=== PATIENT | male | born 1960 | race Caucasian/White ===

== ENCOUNTER 2017-11-18 13:24 | Emergency (ER) | payer SELFPAY ==
[2017-11-18 15:21] LABS: Absolute Lymphocytes (CBC) 2.4 K/uL (0.7-4.9); Absolute Monocytes 0.7 K/uL (0.1-1.3); Absolute Neutrophil 6.1 K/uL (1.8-8.0); Basophils % 0.7 % (0-1.3); Eosinophils % 1.5 % (0-4.4); Hematocrit 48.7 % (39.6-49.0); Lymphocytes % 25.1 % (15.3-44.8); MCH 36.6 pg (27.0-35.0); MCV 106.9 fL (80-100); Monocytes % 7.7 % (3.3-12.3); RBC Red Blood Cell Count 4.56 M/uL (4.33-5.43)
[2017-11-18 16:27] LABS: ALT/SGPT 24 U/L (12-78); AST/SGOT 35 U/L (15-37); Alkaline Phosphatase 105 U/L (45-117); Amylase Level 45 U/L (25-115); BUN Blood Urea Nitrogen 4 mg/dL (7-18); Bicarbonate 32 mmol/L (21-32); Bilirubin Direct 0.5 mg/dL (0-0.2); Bilirubin Total 1.6 mg/dL (0.2-1.0); Glucose Level 97 mg/dL (74-106); Lipase 53 U/L (73-393); Potassium 3.1 mmol/L (3.5-5.1); Protein, Total 7.6 g/dL (6.4-8.2); Sodium Level 134 mmol/L (136-145)
[2017-11-18 16:36] LABS: Blood Morphology Comment NOTED (NOT SEEN); MPV 9.5 fL (7.6-11.3); Macrocytosis 1+; Platelet Estimate ADEQ
[2017-11-18 16:37] LABS: Urine White Blood Cell Casts OK
--- NOTE | 2017-11-18 17:02 | RAD REPORT ---
EXAM DESCRIPTION: CTAbdomen Pelvis W Contrast - 11/18/2017 4:47 pm CLINICAL HISTORY: Abdominal pain. Flank Pain, IV ONLY COMPARISON: No comparisons TECHNIQUE: Biphasic CT imaging of the abdomen and pelvis was performed with 100 ml non-ionic IV cont rast. All CT scans are performed using dose optimization technique as appropriate and may include automated exposure control or mA/KV adjustment according to patient size. FINDINGS: High density material in the left base anteriorly likely related to previous episodes of a spiration. Trace bilateral pleural fluid. Diffuse fatty liver is present with a nodular contour most compatible with underlying cirrhosis. Mild splenomegaly is also seen. The adrenal glands and pancreas have a normal appearance. The gallbladder is slightly distended. Both kidneys are normal in size without hydronephrosis. No bowel obstruction, free air, free fluid or abscess. The appendix is normal. No evidence of signi ficant lymphadenopathy. No acute fracture seen. Evidence of old left lumbar transverse process fractures. IMPRESSION: No acute intra-abdominal or pelvic finding. Fatty liver, mild cirrhosis, splenomegaly noted.
[2017-11-18 17:16] LABS: Urine Bacteria <20 /HPF (NONE SEEN); Urine Culture Reflex Order REFLEXED; Urine RBC <5 /HPF (NONE SEEN)
[2017-11-18 18:06] LABS: Urine Blood NEGATIVE (NEG); Urine Glucose NEGATIVE (NEG); Urine Protein 1+ (NEG); Urine Specific Gravity 1.015 (1.005-1.030); Urine pH 7.5 (5.0-7.0)
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
--- NOTE | 2017-11-18 18:15 | ER ---
Nurse's Notes [facility] Name: Darius Venegas IV Age: 57 yrs Sex: Male : 1960 Arrival Date: 11/18/2017 Time: 13:27 Bed 25 Private MD: Keshawn Guillen H Diagnosis: Other abdominal pain;Sprain of ligaments of lumbar spine Presentation: 11/18 13:34 Presenting complaint: Patient states: slipped and fell 2 days ago and landed on sv buttocks. c/o back pain. Denies numbness. Transition of care: patient was not received from another setting of care. Onset of symptoms was November 16, 2017. Risk Assessment: Do you want to hurt yourself or someone else? Patient reports no desire to harm self or others. Care prior to arrival: None. 13:34 Method Of Arrival: Ambulatory sv 13:34 Acuity: SONNY 4 sv 18:31 Initial Sepsis Screen: Does the patient meet any 2 criteria? No. Patient's initial tl3 sepsis screen is negative. Does the patient have a suspected source of infection? No. Patient's initial sepsis screen is negative. Historical: - Allergies: 13:37 Sulfa (Sulfonamide Antibiotics); sv - Home Meds: 13:37 Alprazolam Oral [Active]; zaleplon oral oral [Active]; risperidone oral oral [Active]; sv amlodipine oral [Active]; Furosemide Oral [Active]; Mirtazapine Oral [Active]; - PMHx: 13:37 Hypertension; sv - PSHx: 13:37 None; sv - Immunization history:: Adult Immunizations up to date. - Social history:: Smoking status: Patient uses tobacco products, smokes one-half pack cigarettes per day. - Ebola Screening: : No symptoms or risks identified at this time. Screenin:29 Abuse screen: Denies threats or abuse. Nutritional screening: No deficits noted. tl3 Tuberculosis screening: No symptoms or risk factors identified. Fall Risk None identified. Assessment: 13:48 General: Appears uncomfortable, obese, well groomed, well developed, well nourished, tl3 Behavior is calm, cooperative, appropriate for age. Pain: Complains of pain in bilateral flank pain. Neuro: Level of Consciousness is awake, alert, obeys commands, Oriented to person, place, time, situation, Appropriate for age. Cardiovascular: Heart tones S1 S2 present Patient's skin is warm and dry. Respiratory: Airway is patent Respiratory effort is even, unlabored, Respiratory pattern is regular, symmetrical. GI: No signs and/or symptoms were reported involving the gastrointestinal system. : Reports discharge, bloody, am. EENT: No signs and/or symptoms were reported regarding the EENT system. Derm: No signs and/or symptoms reported regarding the dermatologic system. Musculoskeletal: No signs and/or symptoms reported regarding the musculoskeletal system. Injury Description: pt slipped and fell on a rug Tuesday night, felt pain in bilateral flank area, am urine was bloody, today it is dark, pain is 9/10 with positional changes. 14:30 Reassessment: No changes from previously documented assessment. Patient and/or family tl3 updated on plan of care and expected duration. Pain level reassessed. Patient is alert, oriented x 3, equal unlabored respirations, skin warm/dry/pink. awaiting CT. 15:40 Reassessment: No changes from previously documented assessment. Patient and/or family tl3 updated on plan of care and expected duration. Pain level reassessed. Patient is alert, oriented x 3, equal unlabored respirations, skin warm/dry/pink. 17:00 Reassessment: No changes from previously documented assessment. Patient and/or family tl3 updated on plan of care and expected duration. Pain level reassessed. Patient is alert, oriented x 3, equal unlabored respirations, skin warm/dry/pink. pt returned from CT. 18:29 Reassessment: Patient appears in no apparent distress at this time. No changes from tl3 previously documented assessment. Patient and/or family updated on plan of care and expected duration. Pain level reassessed. Patient is alert, oriented x 3, equal unlabored respirations, skin warm/dry/pink. Vital Signs: 13:37 BP 140 / 77; Pulse 100; Resp 20; Temp 98.6; Pulse Ox 100% ; Weight 85.28 kg; Height 5 sv ft. 8 in. (172.72 cm); Pain 5/10; 13:51 BP 138 / 100; Pulse 100; Resp 18; Pulse Ox 96% ; tl3 14:50 BP 142 / 94; Pulse 96; Resp 18; Pulse Ox 98% on R/A; dh3 15:45 BP 148 / 80; Pulse 91; Resp 17; Pulse Ox 100% on R/A; dh3 16:45 BP 142 / 88; Pulse 92; Resp 17; Pulse Ox 100% on R/A; dh3 18:29 BP 142 / 88; Pulse 30; Resp 18; Pulse Ox 97% ; tl3 13:37 Body Mass Index 28.59 (85.28 kg, 172.72 cm) sv ED Course: 13:27 Patient arrived in ED. mr 13:28 Keshawn Guillen DO is Private Physician. mr 13:35 Triage completed. sv 13:37 Arm band placed on left wrist. sv 13:41 Alexandra Pimentel, RN is Primary Nurse. tl3 13:52 Travis Garcia PA is PHCP. jmm 13:52 Scotty Doran MD is Attending Physician. jmm 14:55 Radiology exam delayed due to lab results not completed at this time. (BUN/Creatinine). vr 15:00 Missed attempt(s): 20 gauge in right forearm. Bleeding controlled, band aid applied, dh3 catheter tip intact. 15:16 Initial lab(s) drawn, by me, sent to lab. Inserted saline lock: 20 gauge in left dh3 antecubital area, using aseptic technique. Blood collected. 15:38 Lab(s) recollected, by me, sent to lab. 3 16:12 Radiology exam delayed due to lab results not completed at this time. (BUN/Creatinine). nj 16:[address] via stretcher. nj 16:46 CT completed. Patient tolerated procedure well. Patient moved back from CT. nj 16:47 CT Abd/Pelvis - W/Contrast In Process Unspecified. EDMS 17:42 Diet: Patient given snack. Patient given ice chips. tl3 18:13 Keshawn Guillen DO is Referral Physician. jmm 18:29 Patient has correct armband on for positive identification. Bed in low position. Call tl3 light in reach. Side rails up X 1. Pulse ox on. NIBP on. 18:29 No provider procedures requiring assistance completed. IV discontinued, intact, tl3 bleeding controlled, No redness/swelling at site. Pressure dressing applied. Administered Medications: No medications were administered Outcome: 18:15 Discharge ordered by MD. roberts 18:29 Discharged to home ambulatory. tl3 18:29 Condition: stable 18:29 Discharge instructions given to patient, Instructed on discharge instructions, follow up and referral plans. Demonstrated understanding of instructions, follow-up care. 18:32 Patient left the ED. tl3 Signatures: Dispatcher [employer] Thelma Hyman, RN RN Travis Garcia PA PA jmm Rivera, Maria mr Brian, Reagan Saba Deanna [facility] Alexandra Pimentel RN RN tl3
[2017-11-18 19:41] VITALS: TEMP 98.6
[2017-11-18 19:46] VITALS: BP 142/88
[2017-11-18 19:47] VITALS: O2SAT 97
== END 2017-11-18 18:32 | disposition home or self-care (01) ==
LOC: ER 13:24
DX: S33.5XXA Sprain of ligaments of lumbar spine, initial encounter (principal); W19.XXXA Unspecified fall, initial encounter; Y93.9 Activity, unspecified; Y92.9 Unspecified place or not applicable; Z88.2 Allergy status to sulfonamides; I10 Essential (primary) hypertension; F17.210 Nicotine dependence, cigarettes, uncomplicated
CPT/HCPCS: 36415; 74177; 80048; 80076; 81003; 81015; 82150; 82550; 83690; 85025; 87086; 87088; 99284; Q9967

== ENCOUNTER 2019-12-28 11:35 | Day surgery (SDC) | payer OTHER ==
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
[2019-12-26 14:37] LABS: Absolute Lymphocytes (CBC) 3.8 K/uL (0.7-4.9); Basophils % 0.9 % (0-1.3); Hematocrit 48.1 % (39.6-49.0); Lymphocytes % 31.1 % (15.3-44.8); MPV 8.6 fL (7.6-11.3); RBC Red Blood Cell Count 5.24 M/uL (4.33-5.43)
[2019-12-26 14:45] LABS: Potassium 5.1 mmol/L (3.5-5.1)
--- OUTSIDE RECORDS SUMMARY | 2019-12-28 11:44 | XMS REPORT | Continuity of Care Document ---
:1960 Author Organization [facility] t Address [address] [place] [address] Care Team Providers Name Role Phone Omar MORRELL T Attending Clinician Doctor Unassigned, Name Attending Clinician Unavailable Problems Condition Condition Condition Status Onset Resolution Last Treating Co mments Source Name Details Category Date Date Treatment Clinician Date Alcohol-in Alcohol-in Problem Active [facility] duced duced 3-30 Family sleep Sleep 00:00: Practic disorder Disorder 00 e Alcohol-in Alcohol-in Problem Active [facility] duced duced 3-30 Family anxiety Anxiety 00:00: Practic disorder Disorder 00 e Tobacco Tobacco Problem Active [facility] user User 3-30 Family 00:00: Practic 00 e Essential Essential Problem Active Frank bray hypertensi Hypertensi 3-30 Fa silvestre on on 00:00: Practic 00 e 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 Obstructiv 3-30 Fa silvestre e lung e Lung 00:00: Practic disease Disease 00 e Ex-drinker Ex-drinker Problem Active [facility] 3-30 Family 00:00: Practic 00 e Viral Viral Problem Active [facility] hepatitis Hepatitis 2-04 Fami ly C C 00:00: Practic 00 e Alcoholic Alcoholic Problem Active Frank asa cirrhosis Cirrhosis 2-04 Fami ly 00:00: Practic 00 e Allergies, Adverse Reactions, Alerts Allergy Allergy Status Severity Reaction(s) Onset Inactive Treating Comm ents Source Name Type Date Date Clinician SULFA Allergy Active [facility] (SULFONA to Family MIDE substanc Practic ANTIBIOT e e ICS) Social History Smoking Status Start Date Stop Date Source Light Tobacco Smoker [facility] Medications Ordered Filled Start Stop Current Ordering Indication Dosage Frequency Signature Comments Components Source Medication Medication Date Date Medication? Clinician (SIG) Name Name alprazolam alprazolam No 1 TID alprazolam [place] 1 mg tablet 1 mg tablet 1 mg F amily Take 1 Take 1 tablet Practic tablet 3 tablet 3 Take 1 e times a day times a day tablet 3 by oral by oral times a route. route. day by oral route. amlodipine amlodipine No 1 Q1D amlodipine [place] 5 mg tablet 5 mg tablet 5 mg F amily Take 1 Take 1 tablet Practic tablet tablet Take 1 e every day every day tablet by oral by oral every day route. route. by oral route. mirtazapine mirtazapine No 1 Q1D mirtazapin [facility] 15 mg 15 mg e 15 mg Family tablet Take tablet Take tablet Practic 1 tablet 1 tablet Take 1 e every day every day tablet by oral by oral every day route. route. by oral route. propranolol propranolol No 2 TID propranolo [facility] 10 mg 10 mg l 10 mg Family tablet Take tablet Take tablet [facility] 2 tablets 3 2 tablets 3 Take 2 e times a day times a day tablets 3 by oral by oral times a route. route. day by oral route. risperidone risperidone No 2 BID risperidon [place] 0.5 mg 0.5 mg e 0.5 mg Family tablet Take tablet Take tablet [facility] 2 tablets 2 tablets Take 2 e twice a day twice a day tablets by oral by oral twice a route. route. day by oral route. zolpidem 10 zolpidem 10 No 1 Q1D zolpidem [facility] mg tablet mg tablet 10 mg Fami ly Take 1 Take 1 tablet Practic tablet tablet Take 1 e every day every day tablet by oral by oral every day route. route. by oral route. Procedures This patient has no known procedures. Encounters Start End Encounter Admission Attending Care Care Encounter Source Date/Time Date/Time Type Type Clinicians Facility Department ID 2019-08-28 2019-08-28 [facility] [place] - [id number] [facility] 00:00:00 00:00:00 Patricia-Jaseay [facility] candy laboy ICT MANAGERS: Dakota olguin [address] [email or web address] [facility], [address] [address], [place] [address] , Ph. 2019-07-25 2019-07-25 Office Omar [facility] [id number] 13:44:18 14:14:18 Visit Yamilex Heredia [id number] [place] [id number] Beatrice [id number] [address] 2019-07-25 2019-07-25 Orders Doctor JOSE GUADALUPE [id number] 00:00:00 00:00:00 Only Unassigned, CINTHYA [id number] Lasana [facility] [id number] Results This patient has no known results.
[2019-12-28] MEDS ORDERED: propofoL 200 MG/20 ML VIAL IV ONE (12:04)
[2019-12-28] MEDS ORDERED: FENTANYL CITR 100 MCG/2 ML ONE (12:04)
[2019-12-28] MEDS ORDERED: LIDOCAINE 1% MPF 5 ML VIAL ONE (12:04)
[2019-12-28] MEDS ORDERED: ROCURONIUM 50 MG/5 ML VIAL IV ONE (12:04)
[2019-12-28] MEDS ORDERED: MIDAZOLAM HCL 2 MG/2 ML INJ ONE (12:04)
[2019-12-28] MEDS ORDERED: Ringers Lactate 1,000 ML IV ONE (12:06)
[2019-12-28] MEDS ORDERED: CEFAZOLIN/SWI 1gm 1 GM/10 ML SYR ONE (12:07)
[2019-12-28] MEDS ORDERED: BUPIVACAINE 0.5% PF 10 ML VIAL ONE (12:08)
--- NOTE | 2019-12-28 13:31 | P.BOP ---
Preoperative diagnosis: infected backer up subQ masses x 4 Postoperative diagnosis: 1 Excisional biopsy tender R mid back infected subQ mass 3x3cm Primary procedure: 2 Excisional biopsy tender R upper back subQ mass 4x4cm Secondary procedure: 3. Excisional biopsy tender L mid back infected subQ mass 2x2cm Other procedure(s): 4. Excisional biopsy tender L upper back subQ mass 3x3cm Cloth Tearer: Shannon King (Eladio) Estimated blood loss: <20cc Specimen: mass x 4 Findings: as above Anesthesia: General Complications: None Transferred to: Recovery Room Condition: Good
[2019-12-28] MEDS ORDERED: ONDANSETRON 4 MG/2 ML VIAL ONE (13:38)
[2019-12-28] MEDS ORDERED: MORPHINE 4 MG/ML SYR ONE (14:09)
[2019-12-28 14:18] VITALS: TEMP 98
[2019-12-28 14:49] VITALS: BP 135/82; O2SAT 99
--- NOTE | 2019-12-28 22:57 | OP ---
Date of Procedure: 12/28/2019 Surgeon: James Goyal MD Preoperative Diagnosis: Infected back, tender subcutaneous masses x4. Postoperative Diagnosis: Infected back, tender subcutaneous masses x4. Procedures: 1.Excisional biopsy of tender right mid back infected subcutaneous mass, 3 x 3 cm. 2.Excisional biopsy of tender right upper back subcutaneous mass, 4 x 4 cm. 3.Excisional biopsy of tender left mid back infected subcutaneous mass, 2 x 2 cm. 4.Excisional biopsy of tender left upper back subcutaneous mass, 3 x 3 cm. Anesthesia: General plus local. Indications: This is the case of a 59-year-old patient, who comes to us with 4 tender masses; 2 of t hem shows erythematous changes, increasing in size also, and discomfort, although they are tender; 2 of them looks like there are signs of infection. Those 2 are starting to get tender with just mild e rythema. He wants all of them excised. Benefits, alternatives, and risks of excision were fully exp lained, which include, but not limited to infection, bleeding, damage to adjacent structures, anesthe tic complication, nonhealing wound, ID, and even . He also understands this may not relieve his symptoms. He might need more than one surgical intervention. He also understands he may require wo und care in those areas. He signed the consent. Description Of Procedure: The areas of concern were marked by me and the patient in the holding room . The patient was brought to the operating room and placed in supine position. Anesthesia was done without complication. The patient was placed in lateral decubitus position with proper protection. Time-out was called. We proceeded then to prep the back area in usual sterile fashion. We tried to remove the less erythematous masses first and then the other ones second just to diminish the chance of cross contamination. They were excised using the same technique and also closed using same techni que, which consisted of individually incision, was made in a wedge fashion. Incision was carried adam n to subcutaneous tissue, deep in the subcutaneous tissue with the mass and we proceeded to transect the area. Mass was sent out intact. Then, the area was irrigated, hemostasis obtained, and then we proceeded to close this with layers of 3-0 chromic and then 3-0 nylon in a running fashion on top. E ach procedure was done individually using same technique. The patient tolerated each procedure well. Irrigation and hemostasis were obtained before each area was closed and also local anesthetics appl ied. The patient tolerated the procedure well. Sponge counts and instrument counts correct. The talia villegaserik sent in his way to recovery in stable condition. Disposition: Home. Activity: As tolerated. No heavy lifting. Plan: Follow up in my office in 1 week. Call for appointment at [phone]. Keep area dry for 48 neil rs, then may shower. He may apply triple antibiotics and Band-Aid to the areas of concern. Medications: Cipro 500 p.o. q.12 and Vicodin q.4 hours p.r.n. pain. CHRISTOPHE/MODL Voice ID: [id number] Report ID: [id number]
== END 2019-12-28 15:15 | disposition home or self-care (01) ==
LOC: OR 11:35
PROVIDERS: ATTEND Surgery
PROC: 0HB6XZZ Excision of Back Skin, External Approach (ICD-10-PCS; 2019-12-28)
PROC: 0HB6XZZ Excision of Back Skin, External Approach (ICD-10-PCS; 2019-12-28)
PROC: 0HB6XZZ Excision of Back Skin, External Approach (ICD-10-PCS; 2019-12-28)
PROC: 0HB6XZZ Excision of Back Skin, External Approach (ICD-10-PCS; principal; 2019-12-28 12:30)
DX: L72.0 Epidermal cyst (principal); I10 Essential (primary) hypertension; F41.9 Anxiety disorder, unspecified; F32.9 Major depressive disorder, single episode, unspecified; F17.210 Nicotine dependence, cigarettes, uncomplicated; Z79.899 Other long term (current) drug therapy; Z86.19 Personal history of other infectious and parasitic diseases
CPT/HCPCS: 93005; 85025; 80048; 36415; 88304; 71046; 11404; 11403 ×2; 11402; 12034; J2704; J2250; J3010; J0690; J7120; J2405